=== PATIENT | female | born 1955 | race Caucasian/White ===

== ENCOUNTER 2021-08-06 18:20 | Emergency (ER) | payer OTHER ==
[~2021-08-06] VITALS: Ht 170.2 cm; Wt 79.4 kg
== END 2021-08-06 20:25 | disposition home or self-care (01) ==
LOC: ER 18:20
DX: S01.511A Laceration without foreign body of lip, initial encounter (principal); W18.30XA Fall on same level, unspecified, initial encounter; Y93.9 Activity, unspecified; Y92.9 Unspecified place or not applicable; Y99.9 Unspecified external cause status

== ENCOUNTER 2021-08-15 17:06 | Emergency (ER) | payer OTHER ==
[~2021-08-15] VITALS: Ht 170.2 cm; Wt 79.4 kg
[2021-08-15] MEDS ORDERED: SERTRALINE20 MG/1 ML PO (17:13)
== END 2021-08-15 18:38 | disposition home or self-care (01) ==
LOC: ER 17:06
DX: Z48.02 Encounter for removal of sutures (principal)